=== PATIENT | male | born 1950 | race Caucasian/White ===

== ENCOUNTER 2023-05-09 18:30 | Emergency (ER) | payer MEDICARE, OTHER, SELFPAY ==
[2023-05-09] VITALS (10 sets, daily range): BP systolic 157–178; BP diastolic 97–110; PULSE 77–89; RESP 16–39; TEMP 36.4; O2SAT 95–99; BMI 25.8
--- NOTE | 2023-05-09 18:36 | DI.RAD.S_ITS ---
PROCEDURE: XR HAND LT MIN 3V INDICATIONS: traumatic amputation of thumb by skillsaw TECHNIQUE: 3 views of the hand(s) acquired. COMPARISON: None. FINDINGS: Bones: Amputation of the thumb can be seen, with the distal end of the proximal phalanx of the thumb missing, with fractures of the remaining portions of the proximal phalanx. Prior amputation of the distal 3rd finger can be seen. Prior chronic fracture can be seen involving the distal aspect of the proximal phalanx of the 5th finger. Soft tissues: No suspicious soft tissue calcifications. IMPRESSION: Amputation of the majority of the thumb, seen at the level of the distal aspect of the proximal phalanx. Fracture lines can be seen within the remaining proximal phalanx of the thumb. Prior 3rd finger amputation. Chronic 5th finger fracture. Dictated by: Jose Shepherd M.D. on 05/09/2023 at 18:18 Approved by: Jose Shepherd M.D. on 05/09/2023 at 18:20
[2023-05-09 18:46] LABS: Add Manual Diff / Slide Review NO; Basophils Absolute Auto 100 /uL (0-100); Basophils Percent Auto 1.1 % (0-2); Eosinophils Absolute Auto 100 /uL (0-450); Hematocrit 41.8 % (41-53); Hemoglobin 14.3 g/dL (13.5-17.5); Lymphocytes Absolute Auto 1700 /uL (1100-4500); Mean Corpuscular HGB Conc 34.3 % (30-36); Mean Corpuscular Hemoglobin 32.6 PG (26-34); Mean Corpuscular Volume 95.1 fL (80-100); Monocytes Absolute Auto 700 /uL (0-900); Monocytes Percent Auto 12.2 % (3-14); Neutrophils Absolute Auto 2900 /uL (1500-7000); Neutrophils Percent Auto 53.7 % (50-75); Platelet Count 204 X10^3/uL (150-400); Red Blood Cell Count 4.39 X10^6/uL (4.5-5.9); Red Cell Distribution Width 13.4 % (11.6-14.8); White Blood Cell Count 5.4 X10^3/uL (4.5-11.0)
--- NOTE | 2023-05-09 18:50 | ED.TRAUMA ---
HPI - Trauma General Chief Complaint: Extremity Injury, Upper Stated Complaint: Mod Trauma, Thumb Aputation Time Seen by Provider: 05/09/23 18:36 History of Present Illness HPI narrative: 72M nonsmoker with noncontributory chronic medical history presents by EMS for evaluation of an accidental traumatic amputation of his left thumb just prior to arrival. He is activated as a modified trauma taken directly to room 1. He is awake alert and oriented complains of no other injury. He was using a skill saw and suffered the injury as noted. The digit was immediately placed on ice, EMS wrapped him and transported here. His tetanus was updated within 5 years. He does not take any blood thinners or prescription medications. NPO to food from 1300, fluids from 1600. Related Data Allergies Allergy/AdvReac Type Severity Reaction Status Date / Time No Known Drug Allergies Allergy Verified 05/09/23 19:11 Review of Systems Review of Systems Narrative: GENERAL: Denies chills, fatigue, malaise, fever, sweats. HEENT: Denies sinus pain, ear pain, sore throat, difficulty swallowing, dizziness. RESPIRATORY: Denies dyspnea, cough, wheezing, hemoptysis, sputum. CARDIOVASCULAR: Denies chest pain, palpitations, orthopnea, edema, GASTROINTESTINAL: Denies nausea, vomiting, abdominal pain, diarrhea, constipation, melena. : Denies dysuria, frequency, incontinence, hematuria, urinary retention. MUSCULOSKELETAL: see HPI SKIN: Denies rash, skin lesions, or other NEUROLOGIC: Denies weakness, headache, numbness, change in speech, confusion, seizures, incoordination. PSYCHIATRIC: No concerning psychosocial issues. 12 point review of systems is negative except for those stated above Patient History Social History Smoking Status: Never smoker Smoking Status: Never smoker Substance Use Type: does not use Exam Narrative Exam Narrative: GENERAL: [] year old patient appears stated age. Well-developed patient, in mild distress. HEAD: Atraumatic. Normocephalic. EYES: Pupils equal round and reactive. Extraocular motions intact. No scleral icterus. No injection or drainage. ENT: Nose without bleeding, purulent drainage. Throat without erythema, tonsillar hypertrophy or exudate. Airway patent. NECK: Trachea midline. Non tender CARDIOVASCULAR: Regular rate and rhythm without murmurs, gallops, or rubs. RESPIRATORY: Clear to auscultation. Breath sounds equal bilaterally. No wheezes, rales, or rhonchi. GASTROINTESTINAL: Abdomen soft, non-tender, nondistended. EXTREMITIES: Traumatic amputation of left thumb just proximal to the IP with minimal active bleeding and exposed bone. No edema or joint tenderness. BACK: Nontender without deformity or crepitance. No flank tenderness. NEURO: AOx3. SKIN: No rash or erythema of visible areas Initial Vital Signs Initial Vital Signs: Vital Signs Pulse Rate 89 05/09/23 18:34 Respiratory Rate 22 05/09/23 18:34 Pulse Oximetry 98 05/09/23 18:34 Course Orders Ordered: ED Orders 05/09/23 18:34 Complete Blood Count AUTO DIFF Stat Comprehensive Metabolic Panel Stat Prothrombin Time INR Stat Type and Screen Stat 05/09/23 18:36 XR hand LT min 3V Stat 05/09/23 18:41 COVID19 -Nasal RAPID Stat Sodium Chloride (Normal Saline 0.9%) 1,000 mls @ 1,000 mls/hr IV BOLUS ONE Stop: 05/09/23 19:35 Discontinued Medications Cefazolin Sodium 1 gm/ Sodium (Chloride) 100 mls @ 200 mls/hr IV NOW ONE Stop: 05/09/23 19:05 Consultations Consultation #1: seen at bedside by Dr. Castellanos ([facility]) he has evaluated patient and recommends [place] [facility] Consultation #2: call to [facility] [place] (Dr. Wills) happy to accept, [facility] contacted Vital Signs Vital signs: Vital Signs - 8 hr 05/09/23 18:34 05/09/23 18:35 05/09/23 18:35 Temperature Pulse Rate 89 81 Pulse Rate [Left Radial] Respiratory Rate 22 21 Blood Pressure 178/101 H Pulse Oximetry 98 97 Oxygen Delivery Method 05/09/23 18:37 05/09/23 18:45 05/09/23 18:45 Temperature 97.6 F Pulse Rate 83 83 Pulse Rate [Left Radial] Respiratory Rate 16 39 H Blood Pressure 178/101 H 172/110 H Pulse Oximetry 99 98 Oxygen Delivery Method Room Air 05/09/23 19:00 05/09/23 19:00 05/09/23 19:04 Temperature Pulse Rate 81 Pulse Rate [Left Radial] 80 Respiratory Rate 28 H Blood Pressure 175/98 H Pulse Oximetry 96 Oxygen Delivery Method MDM - Trauma Lab Data 05/09/23 18:34 05/09/23 18:34 Labs: Lab Results 05/09/23 05/09/23 Range/Units 18:34 18:41 WBC 5.4 (4.5-11.0) X10^3/uL RBC 4.39 L (4.5-5.9) X10^6/uL Hgb 14.3 (13.5-17.5) g/dL Hct 41.8 (41-53) % MCV 95.1 (80-100) fL MCH 32.6 (26-34) PG MCHC 34.3 (30-36) % RDW 13.4 (11.6-14.8) % Plt Count 204 (150-400) X10^3/uL Neut % (Auto) 53.7 (50-75) % Lymph % (Auto) 31.0 (25-40) % [place] % (Auto) 12.2 (3-14) % Eos % (Auto) 2.0 (2-4) % Baso % (Auto) 1.1 (0-2) % Neut # (Auto) 2900 (0073-4277) /uL Lymph # (Auto) 1700 (5401-2826) /uL [place] # (Auto) 700 (0-900) /uL Eos # (Auto) 100 (0-450) /uL Baso # (Auto) 100 (0-100) /uL PT 10.3 (10.1-12.7) SECONDS INR 0.9 (0.9-1.3) Sodium 140 (137-145) mmol/L Potassium 4.0 (3.4-5.1) mmol/L Chloride 110 H (98-107) mmol/L Carbon Dioxide 23 (22-32) mmol/L BUN 27 H (9-20) mg/dL Creatinine 1.18 (0.66-1.25) mg/dL Estimated GFR > 60 (>60) mL/min BUN/Creatinine Ratio 22.9 H (6-22) Glucose 102 (80-110) mg/dL Calcium 9.2 (8.4-10.2) mg/dL Total Bilirubin 0.3 (0.2-1.3) mg/dL AST 31 (17-59) IU/L ALT 26 (<50) IU/L Alkaline Phosphatase 83 (38-126) U/L Total Protein 7.3 (6.3-8.2) g/dL Albumin 4.0 (3.5-5.0) g/dL Globulin 3.3 (1.7-4.1) g/dL Albumin/Globulin Ratio 1.2 (1.0-2.8) SARS-CoV-2 (PCR) Negative (Negative) MDM Narrative Medical decision making narrative: [72] year old patient presents with traumatic amputation left thumb Prior Charts reviewed in our EMR Primary Historian: patient Labs reviewed and interpreted by myself: No significant lab abnormalities requiring a specific intervention Imaging reviewed: Traumatic amputation left thumb Consultations: Local ortho, see details above. Discussed with Dr. Wills [facility] Critical Care Time Critical Care Time Critical Care Time: Yes Total Critical Care Time: 30 Attestation: The high probability of a clinically significant, sudden or life threatening deterioration of the [MSK] system(s) required my full and direct attention, intervention and personal management. The aggregate critical care time was [30] minutes. This time is in addition to time spent performing reported procedures but includes the following: [x] Data Review and interpretation [x] Patient assessment and monitoring of vital signs [x] Documentation [x] Medication orders and management Thank you [facility], [facility] and Dr. 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
[2023-05-09 18:54] LABS: INR 0.9 (0.9-1.3); Prothrombin Time 10.3 SECONDS (10.1-12.7)
[2023-05-09 18:58] LABS: Alanine Aminotransferase 26 IU/L (<50); Albumin Globulin Ratio 1.2 (1.0-2.8); Alkaline Phosphatase 83 U/L (38-126); Aspartate Aminotransferase 31 IU/L (17-59); BUN Creatinine Ratio 22.9 (6-22); Bilirubin Total 0.3 mg/dL (0.2-1.3); Blood Urea Nitrogen 27 mg/dL (9-20); Calcium 9.2 mg/dL (8.4-10.2); Carbon Dioxide 23 mmol/L (22-32); Chloride 110 mmol/L (98-107); Estimated Glomerular Filt Rate > 60 mL/min (>60); Globulin 3.3 g/dL (1.7-4.1); Glucose 102 mg/dL (80-110); HEMOLYSIS 21 (0-50); Sodium 140 mmol/L (137-145); Total Protein 7.3 g/dL (6.3-8.2)
--- NOTE | 2023-05-09 19:01 | PC.NURSE ---
[employer] flight insurance obtained. . Receipt given to , Alina. Copy placed in chart.
[2023-05-09 19:06] LABS: COVID19 -Nasal RAPID Negative (Negative)
--- NOTE | 2023-05-09 19:07 | PC.NURSE ---
Ortho surgeon in ED to evaluate pt. Amputated thumb placed in soaked saline and placed in bag, placed around another bag of ice and placed in cooler filled with bags of ice per surgery. [place] [facility] [place]
[2023-05-09] MEDS: SODIUM CHLORIDE 0.9% 1,000 ML 1000 ML IV (19:24)
[2023-05-09] MEDS: CEFAZOLIN VIAL 1 GM in SODIUM CHLORIDE 0.9% 100 ML IV (19:24)
== END 2023-05-09 20:08 | disposition short-term general hospital (02) ==
PROVIDERS: Emergency Provider Emergency Medicine
DX: S68.512A Complete traumatic transphalangeal amputation of left thumb, initial encounter (principal); W27.0XXA Contact with workbench tool, initial encounter; Z20.822 Contact with and (suspected) exposure to COVID-19
CPT/HCPCS: 36415; 73130; 80053; 85025; 85610; 86850; 86900; 86901; 87635; 96365; 99284; 99291; C9803; G0390; J0690

== ENCOUNTER → 2024-11-06 08:25 | Outpatient (CLI) | payer MEDICARE, OTHER, SELFPAY ==
[2024-11-06 09:04] LABS: Add Manual Diff / Slide Review NO; Basophils Absolute Auto 0 /uL (0-100); Basophils Percent Auto 1.1 % (0-2); Eosinophils Absolute Auto 100 /uL (0-450); Hematocrit 44.1 % (41-53); Hemoglobin 15.3 g/dL (13.5-17.5); Lymphocytes Absolute Auto 1400 /uL (1100-4500); Lymphocytes Percent Auto 31.9 % (25-40); Mean Corpuscular HGB Conc 34.7 % (30-36); Mean Corpuscular Hemoglobin 33.2 PG (26-34); Mean Corpuscular Volume 95.5 fL (80-100); Monocytes Absolute Auto 500 /uL (0-900); Monocytes Percent Auto 11.1 % (3-14); Neutrophils Absolute Auto 2300 /uL (1500-7000); Neutrophils Percent Auto 53.9 % (50-75); Platelet Count 191 X10^3/uL (150-400); Red Blood Cell Count 4.62 X10^6/uL (4.5-5.9); Red Cell Distribution Width 13.4 % (11.6-14.8); White Blood Cell Count 4.4 X10^3/uL (4.5-11.0)
[2024-11-06 09:23] LABS: Alanine Aminotransferase 28 IU/L (<50); Albumin 4.5 g/dL (3.5-5.0); Albumin Globulin Ratio 1.7 (1.0-2.8); Alkaline Phosphatase 66 U/L (38-126); Aspartate Aminotransferase 33 IU/L (17-59); Blood Urea Nitrogen 23 mg/dL (9-20); Calcium 9.7 mg/dL (8.4-10.2); Carbon Dioxide 26 mmol/L (22-32); Chloride 106 mmol/L (98-107); Cholesterol 132 mg/dL (140-199); Estimated Glomerular Filt Rate 58 mL/min (>60); Globulin 2.6 g/dL (1.7-4.1); Glucose 94 mg/dL (80-110); HDL Cholesterol 57 mg/dL (40-60); HEMOLYSIS < 15 (0-50); LDL Cholesterol Calculated 61 mg/dL (<100); Potassium 4.4 mmol/L (3.4-5.1); Sodium 140 mmol/L (137-145); Total Protein 7.1 g/dL (6.3-8.2); Triglycerides 72 mg/dL (35-150)
[2024-11-06 10:24] LABS: Creatinine Urine Random 133.12 mg/dL
[2024-11-06 10:27] LABS: Microalbumin Urine Random < 0.6 mg/dL (0-1.6)
[2024-11-06 11:18] LABS: Hep C Virus Ab w/Reflex Quant NEGATIVE s/c (NEGATIVE)
== END ==
PROVIDERS: PCP Family Medicine; Referring Provider Family Medicine; Visit Provider Family Medicine
DX: E78.5 Hyperlipidemia, unspecified (principal); I10 Essential (primary) hypertension
CPT/HCPCS: 36415; 80053; 80061; 82043; 82570; 85025; 86803

== ENCOUNTER → 2024-12-09 07:35 | Outpatient (CLI) | payer MEDICARE, OTHER, SELFPAY | PROVIDERS: PCP Family Medicine; Visit Provider Nurse Practitioner Family | DX: J02.9 Acute pharyngitis, unspecified (principal) | CPT/HCPCS: 87070 ==